=== PATIENT | female | born 1970 ===

== ENCOUNTER 2017-12-31 19:12 | Inpatient (IN) ==
[2017-12-31] MEDS ORDERED: ONDANSETRON 4 MG/2 ML VIAL IV PRN (22:03)
[2017-12-31] MEDS ORDERED: HYDROmorphone 2 MG/1 ML VIAL IV PRN (22:22)
[2017-12-31] MEDS: SODIUM CHLORIDE 0.9% 1,000 ML IV SCH (22:54)
[2018-01-01 05:46] LABS: Basophils % 0.5 % (0.0-0.8); Eosinophils # 0.1 10*3/uL (0.0-0.87); Eosinophils % 1.1 % (0.00-10.9); Hematocrit 25.9 VOL% (35.7-47.0); Hemoglobin 6.9 GM/DL (12.0-16.0); Immature Granulocytes % 0.5 %; Immature Granulocytes Absolute 0.03 #; Lymphocytes # 1.1 10*3/uL (1.4-4.0); Lymphocytes % 19.7 % (21.3-54.2); Mean Corpuscular HGB Conc 26.6 GM/DL (32-36); Mean Corpuscular Hemoglobin 17 PG (27-34); Mean Corpuscular Volume 61.8 FL (87-102); Monocytes # 0.4 10*3/uL (0.11-0.8); Monocytes % 6.6 % (1.7-12.7); Neutrophils # 3.9 10*3/uL (1.4-7.4); Neutrophils % 71.6 % (38.7-73.9); Platelet Count 184 T/CUMM (130-400); Red Blood Count 4.19 MC/CUMM (3.8-5.5); Red Cell Distribution Width 22.6 % (9.3-17.3); White Blood Count 5.5 T/CUMM (4-12)
[2018-01-01 05:47] LABS: % Iron Saturation 5.3 % (18-50); Ferritin 11.7 ng/ml (8-252)
[2018-01-01 05:57] LABS: Albumin 3.3 G/DL (3.4-5.0); Bilirubin,Total 1.6 MG/DL (0.2-1.0); Calcium 8.9 MG/DL (8.5-10.1); Osmolality,Calculated 275.4 MOS/KG (273-304); Potassium 3.5 MMOL/L (3.5-5.1); Risk Ratio 2.25; Thyroid Stimulating Hormone 3.58 uIU/ml (0.358-3.74); Total Protein 6.7 G/DL (6.4-8.3); VLDL CHOLESTEROL 11.8 MG/DL
[2018-01-01 06:17] LABS: Giant Platelets Few; Hypochromasia 2+; Platelet Estimate Normal
[2018-01-01] MEDS: SODIUM CHLORIDE 0.9% 1,000 ML IV SCH ×2 (08:13→19:24)
[2018-01-01 08:36] LABS: Basophils % 0.4 % (0.0-0.8); Eosinophils # 0.1 10*3/uL (0.0-0.87); Eosinophils % 0.9 % (0.00-10.9); Hematocrit 25.8 VOL% (35.7-47.0); Hemoglobin 6.8 GM/DL (12.0-16.0); Immature Granulocytes % 0.4 %; Immature Granulocytes Absolute 0.02 #; Lymphocytes # 1.1 10*3/uL (1.4-4.0); Lymphocytes % 21.2 % (21.3-54.2); Mean Corpuscular HGB Conc 26.4 GM/DL (32-36); Mean Corpuscular Hemoglobin 17 PG (27-34); Mean Corpuscular Volume 63.1 FL (87-102); Monocytes # 0.3 10*3/uL (0.11-0.8); Monocytes % 6.2 % (1.7-12.7); Neutrophils # 3.8 10*3/uL (1.4-7.4); Neutrophils % 70.9 % (38.7-73.9); Platelet Count 170 T/CUMM (130-400); Red Blood Count 4.09 MC/CUMM (3.8-5.5); Red Cell Distribution Width 22.5 % (9.3-17.3); White Blood Count 5.3 T/CUMM (4-12)
[2018-01-01 09:41] LABS: Sedimentation Rate-Westergren 16 MM/HR (0-20)
[2018-01-01] MEDS: ENOXAPARIN 40 MG/0.4 ML SYRINGE SUBCUT SCH (09:58)
[2018-01-01 11:31] LABS: Hepatitis A Ab IgM Quant 0.11 Index; Hepatitis A Ab IgM Result Negative (Negative); Hepatitis B Core IgM Quant 0.16 Index; Hepatitis B Core IgM Result Negative (Negative); Hepatitis B Surface Ag Quant 0.37 Index; Hepatitis B Surface Ag Result Negative (Negative); Hepatitis C Virus Ab Quant 0.12 Index; Hepatitis C Virus Ab Result Negative (Negative)
[2018-01-01 12:02] LABS: Folate 6.6 NG/ML (5.4-24.0); Vitamin B12 392 PG/ML (211-911)
[2018-01-02] MEDS: SODIUM CHLORIDE 0.9% 1,000 ML IV SCH ×2 (04:45→17:33)
[2018-01-02 05:57] LABS: Basophils % 0.5 % (0.0-0.8); Eosinophils # 0.1 10*3/uL (0.0-0.87); Eosinophils % 1.5 % (0.00-10.9); Hematocrit 25.7 VOL% (35.7-47.0); Immature Granulocytes % 0.6 %; Immature Granulocytes Absolute 0.04 #; Lymphocytes # 1.2 10*3/uL (1.4-4.0); Lymphocytes % 18.2 % (21.3-54.2); Mean Corpuscular HGB Conc 26.5 GM/DL (32-36); Mean Corpuscular Hemoglobin 17 PG (27-34); Mean Corpuscular Volume 63.9 FL (87-102); Monocytes # 0.4 10*3/uL (0.11-0.8); Monocytes % 6.2 % (1.7-12.7); NRBC # 0.02 10*3/uL; Neutrophils # 4.7 10*3/uL (1.4-7.4); Platelet Count 155 T/CUMM (130-400); Red Blood Count 4.02 MC/CUMM (3.8-5.5); Red Cell Distribution Width 22.1 % (9.3-17.3); White Blood Count 6.5 T/CUMM (4-12)
[2018-01-02 06:02] LABS: Albumin 2.9 G/DL (3.4-5.0); Calcium 8.3 MG/DL (8.5-10.1); Osmolality,Calculated 273.5 MOS/KG (273-304); Potassium 3.6 MMOL/L (3.5-5.1); Total Protein 6.4 G/DL (6.4-8.3)
[2018-01-02 06:03] LABS: Hemoglobin 6.8 GM/DL (12.0-16.0)
[2018-01-02 06:14] LABS: Hypochromasia 2+; Microcytosis 1+
[2018-01-02 06:15] LABS: Polychromasia Slight
[2018-01-02 06:16] LABS: Platelet Estimate Adequate; Target Cells Slight
[2018-01-02] MEDS ORDERED: DEXTROSE 50% 25 GM/50 ML VIAL IV PRN (06:20)
[2018-01-02] MEDS: ENOXAPARIN 40 MG/0.4 ML SYRINGE SUBCUT SCH (10:38)
[2018-01-02] MEDS ORDERED: SODIUM CHLORIDE 0.9% 1,000 ML IV PRN (16:54)
[2018-01-03 09:44] LABS: Basophils % 0.5 % (0.0-0.8); Eosinophils # 0.1 10*3/uL (0.0-0.87); Eosinophils % 0.8 % (0.00-10.9); Hematocrit 35.4 VOL% (35.7-47.0); Immature Granulocytes % 1.2 %; Immature Granulocytes Absolute 0.09 #; Lymphocytes # 0.8 10*3/uL (1.4-4.0); Lymphocytes % 10.6 % (21.3-54.2); Mean Corpuscular HGB Conc 28.2 GM/DL (32-36); Mean Corpuscular Hemoglobin 20 PG (27-34); Mean Corpuscular Volume 69.8 FL (87-102); Monocytes # 0.2 10*3/uL (0.11-0.8); Monocytes % 3.2 % (1.7-12.7); Neutrophils # 6.2 10*3/uL (1.4-7.4); Neutrophils % 83.7 % (38.7-73.9); Platelet Count 161 T/CUMM (130-400); Red Blood Count 5.07 MC/CUMM (3.8-5.5); Red Cell Distribution Width 26.3 % (9.3-17.3); White Blood Count 7.4 T/CUMM (4-12)
[2018-01-03 09:45] LABS: Albumin 3.2 G/DL (3.4-5.0); Calcium 8.5 MG/DL (8.5-10.1); Osmolality,Calculated 265.1 MOS/KG (273-304); Potassium 3.7 MMOL/L (3.5-5.1); Total Protein 6.9 G/DL (6.4-8.3)
[2018-01-03 09:46] LABS: Giant Platelets Few; Hypochromasia 1+; Platelet Estimate Normal
[2018-01-03 09:47] LABS: Microcytosis Slight
[2018-01-03] MEDS: ENOXAPARIN 40 MG/0.4 ML SYRINGE SUBCUT SCH (10:00)
[2018-01-03] MEDS ORDERED: cefOXitin 2,000 MG in SYRINGE 1 EACH IV ONE (16:57)
[2018-01-04] MEDS ORDERED: LIDOCAINE 2%/EPI 20 ML VIAL ONE (06:30)
[2018-01-04] MEDS ORDERED: BUPIVACAINE 0.25% 50 ML VIAL ONE (06:30)
[2018-01-04 06:53] LABS: Albumin 3.1 G/DL (3.4-5.0); Bilirubin,Total 1.2 MG/DL (0.2-1.0); Calcium 8.6 MG/DL (8.5-10.1); Osmolality,Calculated 271.7 MOS/KG (273-304); Potassium 3.2 MMOL/L (3.5-5.1); Total Protein 6.9 G/DL (6.4-8.3)
[2018-01-04 07:01] LABS: Basophils # 0.1 10*3/uL (0.0-0.2); Eosinophils # 0.2 10*3/uL (0.0-0.87); Eosinophils % 3.3 % (0.00-10.9); Hematocrit 34.4 VOL% (35.7-47.0); Hemoglobin 9.7 GM/DL (12.0-16.0); Immature Granulocytes % 0.8 %; Immature Granulocytes Absolute 0.05 #; Lymphocytes # 0.9 10*3/uL (1.4-4.0); Lymphocytes % 13.8 % (21.3-54.2); Mean Corpuscular HGB Conc 28.2 GM/DL (32-36); Mean Corpuscular Hemoglobin 19 PG (27-34); Mean Corpuscular Volume 68.7 FL (87-102); Monocytes # 0.5 10*3/uL (0.11-0.8); Monocytes % 7.8 % (1.7-12.7); Neutrophils # 4.5 10*3/uL (1.4-7.4); Neutrophils % 73.3 % (38.7-73.9); Platelet Count 169 T/CUMM (130-400); Red Blood Count 5.01 MC/CUMM (3.8-5.5); Red Cell Distribution Width 25.9 % (9.3-17.3); White Blood Count 6.1 T/CUMM (4-12)
[2018-01-04 07:11] LABS: Giant Platelets Few; Hypochromasia 2+; Microcytosis Slight; Platelet Estimate Normal
[2018-01-04] MEDS ORDERED: PROPOFOL 200 MG/20 ML VIAL IV ONE (08:24)
[2018-01-04] MEDS ORDERED: SEVOFLURANE 1 UNIT/15 MINUTE INH ONE (08:25)
[2018-01-04] MEDS ORDERED: hydrALAZINE 20 MG/1 ML VIAL ONE (08:25)
[2018-01-04] MEDS ORDERED: DEXAMETHASONE 10 MG/1 ML VIAL ONE (08:25)
[2018-01-04] MEDS ORDERED: GLYCOPYRROLATE 0.4 MG/2 ML VIAL ONE (08:26)
[2018-01-04] MEDS ORDERED: ONDANSETRON 4 MG/2 ML VIAL ONE ×2 (08:26→08:37)
[2018-01-04] MEDS ORDERED: NEOSTIGMINE 10 MG/10 ML VIAL ONE ×2 (08:26→08:27)
[2018-01-04] MEDS ORDERED: KETOROLAC 30 MG/1 ML VIAL ONE (08:26)
[2018-01-04] MEDS ORDERED: ACETAMINOPHEN 1,000 MG/100 ML VIAL IV ONE (08:27)
[2018-01-04] MEDS ORDERED: ROCURONIUM 100 MG/10 ML VIAL IV ONE (08:27)
[2018-01-04] MEDS ORDERED: LACTATED RINGERS 1,000 ML IV ONE (08:27)
[2018-01-04] MEDS: HYDROmorphone 2 MG/1 ML VIAL IV PRN ×2 (08:35→08:40)
[2018-01-04] MEDS ORDERED: HYDROmorphone 2 MG/1 ML VIAL ONE (08:37)
[2018-01-04] MEDS ORDERED: ONDANSETRON 4 MG/2 ML VIAL IV PRN (08:41)
[2018-01-04] MEDS: cefOXitin 2,000 MG in SYRINGE 1 EACH IV SCH ×2 (09:20→18:03)
[2018-01-04] MEDS: ENOXAPARIN 40 MG/0.4 ML SYRINGE SUBCUT SCH (09:46)
[2018-01-05] MEDS: cefOXitin 2,000 MG in SYRINGE 1 EACH IV SCH ×2 (01:03→09:10)
[2018-01-05 05:35] LABS: Basophils % 0.3 % (0.0-0.8); Eosinophils % 0.2 % (0.00-10.9); Hematocrit 31.9 VOL% (35.7-47.0); Hemoglobin 9.3 GM/DL (12.0-16.0); Immature Granulocytes % 0.6 %; Immature Granulocytes Absolute 0.04 #; Lymphocytes % 15.9 % (21.3-54.2); Mean Corpuscular HGB Conc 29.2 GM/DL (32-36); Mean Corpuscular Hemoglobin 20 PG (27-34); Mean Corpuscular Volume 67.7 FL (87-102); Monocytes # 0.6 10*3/uL (0.11-0.8); Neutrophils # 4.8 10*3/uL (1.4-7.4); Platelet Count 207 T/CUMM (130-400); Red Blood Count 4.71 MC/CUMM (3.8-5.5); White Blood Count 6.5 T/CUMM (4-12)
[2018-01-05 05:58] LABS: Albumin 2.9 G/DL (3.4-5.0); Calcium 8.6 MG/DL (8.5-10.1); Giant Platelets Few; Hypochromasia 1+; Osmolality,Calculated 274.7 MOS/KG (273-304); Platelet Estimate Adequate; Potassium 3.5 MMOL/L (3.5-5.1); Total Protein 6.3 G/DL (6.4-8.3)
[2018-01-05 05:59] LABS: Microcytosis Slight
[2018-01-05] MEDS: ENOXAPARIN 40 MG/0.4 ML SYRINGE SUBCUT SCH (09:10)
[2018-01-05 11:32] VITALS: BP 137/75
== END 2018-01-05 15:40 | disposition home or self-care (01) | DRG 418 ==
LOC: N.3E 20:30 → SUATTDRO 20:30 → INTOOBSV 21:57
PROC: LAPCHOL (2018-01-04 06:57)